=== PATIENT | male | born 1945 | race Caucasian/White ===

== ENCOUNTER 2022-03-04 15:20 | Emergency (ER) | payer OTHER ==
[~2022-03-04] VITALS: Ht 172.7 cm; Wt 88.6 kg
[2022-03-04] MEDS ORDERED: ONDANSETRON HCL INJ 2MG/ML 2ML 2 MG/ML VIAL ONE (15:37)
[2022-03-04] MEDS ORDERED: FAMOTIDINE 20 MG/2 ML VIAL IV ONE (15:37)
[2022-03-04] MEDS ORDERED: KETOROLAC TROMETHAMINE 30 MG/ML VIAL ONE (15:37)
[2022-03-04] MEDS ORDERED: SODIUM CHLORIDE 0.9% 1000ML 1,000 ML ONE (15:38)
[2022-03-04] MEDS ORDERED: FAMOTIDINE 20 MG/2 ML VIAL IV STA (16:05)
[2022-03-04] MEDS ORDERED: ONDANSETRON HCL INJ 2MG/ML 2ML 2 MG/ML VIAL IV STA (16:05)
[2022-03-04] MEDS ORDERED: KETOROLAC TROMETHAMINE 30 MG/ML VIAL IV STA (16:05)
[2022-03-04] MEDS ORDERED: SODIUM CHLORIDE 0.9% 1000ML 1,000 ML IV ONE (16:15)
[2022-03-04] MEDS ORDERED: IOPAMIDOL 370 MG/ML 100 ML INFUS..BTL INJ ONE (17:04)
[2022-03-04] MEDS ORDERED: KETOROLAC TROME10 MG PO (18:31)
[2022-03-04] MEDS ORDERED: CEFDINIR300 MG PO (18:31)
[2022-03-04] MEDS ORDERED: FLOMAX0.4 MG PO (18:31)
[2022-03-04 18:40] VITALS: BP 168/86
== END 2022-03-04 18:43 | disposition home or self-care (01) ==
LOC: FSED 15:23
DX: R10.32 Left lower quadrant pain (principal); N13.2 Hydronephrosis with renal and ureteral calculous obstruction; K57.30 Diverticulosis of large intestine without perforation or abscess without bleeding; N28.1 Cyst of kidney, acquired; E11.65 Type 2 diabetes mellitus with hyperglycemia; I10 Essential (primary) hypertension; E78.5 Hyperlipidemia, unspecified
CPT/HCPCS: 74177; 80053; 81003; 85025; 99284; J1885; J2405; J7030; Q9967